=== PATIENT | male | born 1955 | race Caucasian/White ===

== ENCOUNTER 2021-06-29 09:57 | Inpatient (IN) ==
[2021-06-29] MEDS ORDERED: Albuterol HFA INHALER 8 gm MDI INH ONE (10:31)
[2021-06-29 11:06] LABS: ABS Basophils 0.1 10^3/ul (0-0.2); ABS Eosinophils 0.4 10^3/ul (0-0.6); ABS Lymphocytes 1.7 10^3/ul (1.0-4.8); ABS Monocytes 1.3 10^3/ul (0-0.8); ABS Neutrophils 10.2 10^3/ul (1.5-7.7); Eosinophil % 3.2 %; Hematocrit 46 % (42-52); Hemoglobin 15.8 g/dL (14.0-18.0); Mean Corpuscular HGB Conc 34 g/dL (31-36); Mean Corpuscular Hemoglobin 34 pg (27-31); Mean Corpuscular Volume 99 fL (80-94); Mean Platelet Volume 9.6 fL (7.4-10.4); Platelet Count 212 10^3/uL (150-450); Red Cell Distribution Width 14 % (10-15); White Blood Count 13.8 10^3/uL (3.5-10.8)
[2021-06-29 11:21] LABS: Troponin I 0.01 ng/mL (<0.03)
[2021-06-29 11:31] LABS: ALT 37 U/L (7-52); AST 21 U/L (13-39); Albumin 4.4 g/dL (3.2-5.2); Albumin/Globulin Ratio 1.8 (1-3); Alkaline Phosphatase 71 U/L (35-149); Anion Gap 10 mmol/L (2-11); Blood Urea Nitrogen 19 mg/dL (6-24); CO2 Carbon Dioxide 29 mmol/L (22-32); Calcium 9.3 mg/dL (8.6-10.3); Chloride 97 mmol/L (101-111); Globulin 2.5 g/dL (2-4); Glucose 121 mg/dL (70-100); Potassium 3.5 mmol/L (3.5-5.0); Sodium 136 mmol/L (135-145); Total Protein 6.9 g/dL (6.4-8.9)
[2021-06-29 11:51] LABS: INR 1.01 (0.86-1.15)
[2021-06-29] MEDS ORDERED: cefTRIAXone 1 gm/50 mL NS BAG 1 GM/50 ML BAG IV ONE (12:22)
[2021-06-29 13:01] LABS: Rapid COVID-19 Molecular Undetected (Undetected)
[2021-06-29] MEDS ORDERED: Azithromycin 500 mg/250 ml NS 500 MG/250 ML BAG IVPB ONE (14:38)
[2021-06-29] MEDS ORDERED: Ondansetron 4 mg VIAL 2 MG/ML 2 ml VIAL IV PRN (14:44)
[2021-06-29 15:20] LABS: C Reactive Protein < 1.00 mg/L (<8.01)
[2021-06-29] MEDS ORDERED: Potassium Chlor 20 meq TAB.ER PO ONE (16:23)
[2021-06-29 16:30] LABS: Urine Appearance Clear; Urine Bilirubin Negative (Negative); Urine Blood Negative (Negative); Urine Color Yellow; Urine Glucose Negative (Negative); Urine Ketones Trace (Negative); Urine Nitrite Negative (Negative); Urine Protein Negative (Negative); Urine Specific Gravity 1.013 (1.002-1.030); Urine Urobilinogen Negative (Negative)
[2021-06-29] MEDS: Enoxaparin 40 MG/0.4 ML SYR SUBCUT SCH (18:15)
[2021-06-29] MEDS ORDERED: LORazepam 2 mg VIAL 1 ml IV PUSH PRN (18:51)
[2021-06-29] MEDS ORDERED: Lorazepam PYXIS KEY PRN (18:51)
[2021-06-29] MEDS: Albuterol/Ipratropium NEB.SOL (2.5/0.5 MG) 3 ML NEB.SOLN INH PRN (19:02)
[2021-06-30] MEDS: CMCS:Meloxicam 7.5 mg TAB (NF) PO SCH (08:54)
[2021-06-30] MEDS: cefTRIAXone 1 gm/50 mL NS BAG 1 GM/50 ML BAG IVPB SCH (08:55)
[2021-06-30 10:00] LABS: Hematocrit 43 % (42-52); Hemoglobin 14.3 g/dL (14.0-18.0); Mean Corpuscular HGB Conc 34 g/dL (31-36); Mean Corpuscular Hemoglobin 33 pg (27-31); Mean Corpuscular Volume 99 fL (80-94); Mean Platelet Volume 9.1 fL (7.4-10.4); Platelet Count 189 10^3/uL (150-450); Red Cell Distribution Width 14 % (10-15); White Blood Count 12.9 10^3/uL (3.5-10.8)
[2021-06-30 10:21] LABS: Calcium 8.9 mg/dL (8.6-10.3); Potassium 3.6 mmol/L (3.5-5.0)
[2021-06-30] MEDS ORDERED: Potassium Chlor 20 meq TAB.ER PO ONE (11:00)
[2021-06-30 11:14] LABS: ABS Basophils 0.1 10^3/ul (0-0.2); ABS Eosinophils 0.2 10^3/ul (0-0.6); ABS Lymphocytes 2.6 10^3/ul (1.0-4.8); ABS Monocytes 1.7 10^3/ul (0-0.8); ABS Neutrophils 8.4 10^3/ul (1.5-7.7); Eosinophil % 1.6 %
[2021-06-30] MEDS: Enoxaparin 40 MG/0.4 ML SYR SUBCUT SCH (17:39)
[2021-07-01 05:35] LABS: Hematocrit 41 % (42-52); Hemoglobin 13.6 g/dL (14.0-18.0); Mean Corpuscular HGB Conc 34 g/dL (31-36); Mean Corpuscular Hemoglobin 34 pg (27-31); Mean Corpuscular Volume 101 fL (80-94); Mean Platelet Volume 9.8 fL (7.4-10.4); Platelet Count 179 10^3/uL (150-450); Red Blood Count 4.03 10^6 /uL (4.18-5.48); Red Cell Distribution Width 14 % (10-15); White Blood Count 11.8 10^3/uL (3.5-10.8)
[2021-07-01 05:41] LABS: ABS Eosinophils 0.1 10^3/ul (0-0.6); ABS Lymphocytes 2.7 10^3/ul (1.0-4.8); ABS Monocytes 1.6 10^3/ul (0-0.8); ABS Neutrophils 7.3 10^3/ul (1.5-7.7); Eosinophil % 0.6 %; Lymphocyte % 23.3 %
[2021-07-01 05:50] LABS: Calcium 8.8 mg/dL (8.6-10.3); Magnesium 2.1 mg/dL (1.9-2.7)
[2021-07-01] MEDS: cefTRIAXone 1 gm/50 mL NS BAG 1 GM/50 ML BAG IVPB SCH (08:10)
[2021-07-01] MEDS: CMCS:Meloxicam 7.5 mg TAB (NF) PO SCH (08:16)
[2021-07-01] MEDS: Albuterol/Ipratropium NEB.SOL (2.5/0.5 MG) 3 ML NEB.SOLN INH PRN (14:39)
[2021-07-01] MEDS: SPIRIVA Respimat (tiotropium) 2.5 mcg/inh Inhaler INH SCH (14:39)
[2021-07-01] MEDS: Enoxaparin 40 MG/0.4 ML SYR SUBCUT SCH (16:54)
[2021-07-02 06:56] LABS: Hematocrit 45 % (42-52); Hemoglobin 15.2 g/dL (14.0-18.0); Mean Corpuscular HGB Conc 34 g/dL (31-36); Mean Corpuscular Hemoglobin 34 pg (27-31); Mean Corpuscular Volume 100 fL (80-94); Mean Platelet Volume 9.6 fL (7.4-10.4); Platelet Count 202 10^3/uL (150-450); Red Blood Count 4.51 10^6 /uL (4.18-5.48); Red Cell Distribution Width 14 % (10-15); White Blood Count 12.4 10^3/uL (3.5-10.8)
[2021-07-02 07:05] LABS: ABS Eosinophils 0.1 10^3/ul (0-0.6); ABS Lymphocytes 4.1 10^3/ul (1.0-4.8); ABS Monocytes 1.7 10^3/ul (0-0.8); ABS Neutrophils 6.5 10^3/ul (1.5-7.7); Eosinophil % 1.1 %; Lymphocyte % 32.7 %
[2021-07-02 07:16] LABS: Calcium 9.2 mg/dL (8.6-10.3); Potassium 3.4 mmol/L (3.5-5.0)
[2021-07-02] MEDS: SPIRIVA Respimat (tiotropium) 2.5 mcg/inh Inhaler INH SCH (07:28)
[2021-07-02] MEDS: cefTRIAXone 1 gm/50 mL NS BAG 1 GM/50 ML BAG IVPB SCH (08:42)
[2021-07-02] MEDS: CMCS:Meloxicam 7.5 mg TAB (NF) PO SCH (08:43)
[2021-07-02] MEDS ORDERED: Albuterol/Ipratropium NEB.SOL (2.5/0.5 MG) 3 ML NEB.SOLN INH ONE (09:54)
[2021-07-02] MEDS ORDERED: Potassium Chlor 20 meq TAB.ER PO ONE (14:40)
[2021-07-02] MEDS: Enoxaparin 40 MG/0.4 ML SYR SUBCUT SCH (16:32)
[2021-07-03 05:41] LABS: Hematocrit 44 % (42-52); Hemoglobin 15.2 g/dL (14.0-18.0); Mean Corpuscular HGB Conc 34 g/dL (31-36); Mean Corpuscular Hemoglobin 34 pg (27-31); Mean Corpuscular Volume 99 fL (80-94); Mean Platelet Volume 9.7 fL (7.4-10.4); Platelet Count 195 10^3/uL (150-450); Red Blood Count 4.51 10^6 /uL (4.18-5.48); Red Cell Distribution Width 14 % (10-15); White Blood Count 12.1 10^3/uL (3.5-10.8)
[2021-07-03 05:51] LABS: ABS Eosinophils 0.1 10^3/ul (0-0.6); ABS Lymphocytes 3.6 10^3/ul (1.0-4.8); ABS Monocytes 1.7 10^3/ul (0-0.8); ABS Neutrophils 6.7 10^3/ul (1.5-7.7); Eosinophil % 0.8 %; Lymphocyte % 29.7 %
[2021-07-03 05:57] LABS: Calcium 8.8 mg/dL (8.6-10.3); Potassium 3.6 mmol/L (3.5-5.0)
[2021-07-03] MEDS ORDERED: Potassium Chlor 20 meq TAB.ER PO ONE (06:49)
[2021-07-03] MEDS: SPIRIVA Respimat (tiotropium) 2.5 mcg/inh Inhaler INH SCH (08:23)
[2021-07-03] MEDS: Albuterol HFA INHALER 8 gm MDI INH PRN ×2 (08:23→11:02)
[2021-07-03] MEDS: cefTRIAXone 1 gm/50 mL NS BAG 1 GM/50 ML BAG IVPB SCH (09:08)
[2021-07-03] MEDS: Mometasone/Formoter 100/5 MDI INH SCH ×2 (11:01→19:59)
[2021-07-03] MEDS: methylPREDNISolone SOD 40 mg/ml 1 ml VIAL IV SCH ×2 (13:19→21:37)
[2021-07-03] MEDS: Enoxaparin 40 MG/0.4 ML SYR SUBCUT SCH (17:12)
[2021-07-04] MEDS: methylPREDNISolone SOD 40 mg/ml 1 ml VIAL IV SCH ×3 (02:42→17:28)
[2021-07-04] MEDS: SPIRIVA Respimat (tiotropium) 2.5 mcg/inh Inhaler INH SCH ×2 (07:39→07:40)
[2021-07-04] MEDS: Mometasone/Formoter 100/5 MDI INH SCH (07:44)
[2021-07-04] MEDS: cefTRIAXone 1 gm/50 mL NS BAG 1 GM/50 ML BAG IVPB SCH (08:51)
[2021-07-04 09:46] LABS: ABS Lymphocytes 1.5 10^3/ul (1.0-4.8); ABS Monocytes 0.6 10^3/ul (0-0.8); ABS Neutrophils 12.9 10^3/ul (1.5-7.7); Hematocrit 48 % (42-52); Hemoglobin 16.4 g/dL (14.0-18.0); Lymphocyte % 10.2 %; Mean Corpuscular HGB Conc 34 g/dL (31-36); Mean Corpuscular Hemoglobin 34 pg (27-31); Mean Corpuscular Volume 99 fL (80-94); Mean Platelet Volume 9.6 fL (7.4-10.4); Platelet Count 213 10^3/uL (150-450); Red Blood Count 4.86 10^6 /uL (4.18-5.48); Red Cell Distribution Width 14 % (10-15)
[2021-07-04 09:54] LABS: Calcium 9.2 mg/dL (8.6-10.3); Potassium 3.9 mmol/L (3.5-5.0)
[2021-07-04] MEDS: Enoxaparin 40 MG/0.4 ML SYR SUBCUT SCH (17:27)
[2021-07-04] MEDS: Albuterol/Ipratropium NEB.SOL (2.5/0.5 MG) 3 ML NEB.SOLN INH SCH (20:03)
[2021-07-05] MEDS: methylPREDNISolone SOD 40 mg/ml 1 ml VIAL IV SCH ×3 (02:03→17:15)
[2021-07-05] MEDS: Albuterol/Ipratropium NEB.SOL (2.5/0.5 MG) 3 ML NEB.SOLN INH SCH ×4 (02:56→19:57)
[2021-07-05] MEDS ORDERED: Dextrose 50% Syringe 50 ml 25 GM/50 ML SYRINGE IV PUSH PRN (11:44)
[2021-07-05] MEDS: Enoxaparin 40 MG/0.4 ML SYR SUBCUT SCH (17:16)
[2021-07-06] MEDS: Albuterol/Ipratropium NEB.SOL (2.5/0.5 MG) 3 ML NEB.SOLN INH SCH ×2 (01:19→07:25)
[2021-07-06] MEDS: methylPREDNISolone SOD 40 mg/ml 1 ml VIAL IV SCH ×2 (03:10→09:55)
[2021-07-06 06:17] LABS: Calcium 8.6 mg/dL (8.6-10.3); Potassium 4.3 mmol/L (3.5-5.0)
[2021-07-06 10:10] VITALS: BP 117/74
[2021-07-06] MEDS ORDERED: Albuterol/Ipratropium NEB.SOL (2.5/0.5 MG) 3 ML NEB.SOLN INH PRN (12:35)
[2021-07-06] MEDS ORDERED: Mometasone/Formoter 100/5 MDI INH SCH (19:00)
[2021-07-07] MEDS ORDERED: SPIRIVA Respimat (tiotropium) 2.5 mcg/inh Inhaler INH SCH (09:00)
== END 2021-07-06 14:50 | disposition home or self-care (01) | DRG 190 ==
LOC: ED 09:57 → EDHOLD 14:44 → SUATTDRO 14:44 → MED 16:02
PROVIDERS: ADMIT Internal Medicine; ATTEND Hospitalist